=== PATIENT | male | born 1990 | race American Indian/Alaskan Native ===

== ENCOUNTER 2019-02-19 18:16 | Emergency (ER) | payer OTHER ==
--- NOTE | 2019-02-19 18:45 | Emergency Department Report ---
Blank Doc - Documentation Documentation: This is a 28-year-old male that presents with boil to left occipital scalp area. This initial assessment/diagnostic orders/clinical plan/treatment(s) is/are subject to change based on patient's health status, clinical progression and re- assessment by fellow clinical providers in the ED. Further treatment and workup at subsequent clinical providers discretion. Patient/guardians urged not to elope from the ED as their condition may be serious if not clinically assessed and managed. Initial orders include: 1- Patient sent to [facility] for further evaluation and treatment
[2019-02-19 18:46] VITALS: BP 116/71
--- NOTE | 2019-02-19 20:03 | Emergency Department Report ---
Abscess Boil HPI - HPI Chief Complaint: Skin/Abscess/Foreign Body Stated Complaint: BUMP ON BACK OF NECK Time Seen by Provider: 02/19/19 18:45 Duration: >1 Week Location: Head History: Yes Purulent Drainage, No Fever, No Pain, No Numbness, No Foreign Body, No Previous History, No Insect Bite HPI: Patient is a 28-year-old male comes to the ER with what he calls a bump on the back of his head. It is on his lower right occipital area. He was concerned that she spider bite. It looks like an ingrown hair that had abscessed and then popped. VSS. afebrile. non toxic. Home Medications: Previous Rx's Medication Instructions Recorded Last Taken Type Amoxicillin 500 mg PO BID #20 capsule 02/19/19 Unknown Rx Allergies/Adverse Reactions: Allergies Allergy/AdvReac Type Severity Reaction Status Date / Time No Known Allergies Allergy Unverified 02/19/19 18:26 ED Review of Systems ROS: Stated complaint: BUMP ON BACK OF NECK Other details as noted in HPI Comment: All other systems reviewed and negative ED Past Medical Hx - Past Medical History Previous Medical History?: No - Surgical History Past Surgical History?: No - Social History Smoking Status: Never Smoker Substance Use Type: None - Medications Home Medications: Home Medications Medication Instructions Recorded Confirmed Last Taken Type Amoxicillin 500 mg PO BID #20 capsule 02/19/19 Unknown Rx ED Abscess Boil Physical Exam - Exam General: Vital signs noted. No distress. Alert and acting appropriately. Size: 1 cm Exam: Yes Normal Neurologic Exam, Yes Normal Circulation, No Tenderness, No Fluctuance, No Surrounding Cellulites/Erythema, No Lymphangitis, No Crepitation, No Heart Murmur ED Course Vital Signs 02/19/19 18:45 Temperature 98.5 F Pulse Rate 70 Respiratory 18 Rate Blood Pressure 116/71 O2 Sat by Pulse 100 Oximetry Critical care attestation.: If time is entered above; I have spent that time in minutes in the direct care of this critically ill patient, excluding procedure time. ED Medical Decision Making - Medical Decision Making open and draining area of folliculitis dc home with antibiotics Vital Signs 02/19/19 18:45 Temperature 98.5 F Pulse Rate 70 Respiratory 18 Rate Blood Pressure 116/71 O2 Sat by Pulse 100 Oximetry ED Disposition Clinical Impression: Folliculitis Disposition: DC-01 TO HOME OR SELFCARE Is pt being admited?: No Does the pt Need Aspirin: No Condition: Stable Instructions: Folliculitis (ED) Additional Instructions: keep clean with soap and water med as ordered today Referrals: [facility] [Outside] - 3-5 Days Time of Disposition: 20:01
== END 2019-02-19 20:06 | disposition home or self-care (01) ==
LOC: ED 18:16
DX: L73.9 Follicular disorder, unspecified (principal)
CPT/HCPCS: 99282